=== PATIENT | male | born 1955 | race Caucasian/White ===

== ENCOUNTER → 2016-07-15 | Outpatient (CLI) | payer OTHER | END | disposition home or self-care (01) | LOC: RES 10:00 | DX: Z02.71 Encounter for disability determination (principal) | CPT/HCPCS: 94060; 94729; 94760 ==

== ENCOUNTER → 2017-01-05 | Outpatient (CLI) | payer OTHER ==
[~2017-01-05] MED LIST: PERCOCET 5/31 TABLET PO
== END | disposition home or self-care (01) ==
LOC: CDC 11:33
DX: K40.90 Unilateral inguinal hernia, without obstruction or gangrene, not specified as recurrent (principal)
CPT/HCPCS: 93000

== ENCOUNTER 2017-01-10 11:07 | Day surgery (SDC) | payer OTHER ==
[~2017-01-10] VITALS: Ht 170.2 cm; Wt 68.0 kg
[2017-01-10 11:36] VITALS: BP 126/77
[2017-01-10] MEDS ORDERED: PERCOCET 5/31 TABLET PO (13:49)
[2017-01-10 14:58] VITALS: BP 120/70
[2017-01-10 16:14] VITALS: BP 120/70
== END 2017-01-10 16:19 | disposition home or self-care (01) ==
LOC: SDC 11:07
PROC: 0YU60JZ Supplement Left Inguinal Region with Synthetic Substitute, Open Approach (ICD-10-PCS; principal; 2017-01-10)
DX: K40.91 Unilateral inguinal hernia, without obstruction or gangrene, recurrent (principal); K57.30 Diverticulosis of large intestine without perforation or abscess without bleeding; K21.9 Gastro-esophageal reflux disease without esophagitis
CPT/HCPCS: C1781; J0131; J0690; J1885; J2250; J2405; J3010